=== PATIENT | female | born 1990 | race Caucasian/White ===

== ENCOUNTER 2017-05-07 11:20 | Emergency (ER) | payer MEDICAID ==
[~2017-05-07] VITALS: Ht 162.6 cm; Wt 56.8 kg
[~2017-05-07 11:20] MED LIST: PRENATAL VITAMIN
[2017-05-07 12:25] LABS: UA SPECIFIC GRAVITY <=1.005 (1.005-1.035); microscopic required? YES; urine erythrocyte TRACE (NEGATIVE)
[2017-05-07 13:26] VITALS: BP 99/56
== END 2017-05-07 13:26 | disposition home or self-care (01) ==
LOC: ED 11:20
PROVIDERS: Emergency Medicine
DX: O23.42 Unspecified infection of urinary tract in pregnancy, second trimester (principal); Z3A.23 23 weeks gestation of pregnancy
CPT/HCPCS: J0696

== ENCOUNTER 2017-05-09 20:36 | Emergency (ER) | payer MEDICAID ==
[~2017-05-09] VITALS: Ht 162.6 cm; Wt 57.6 kg
[2017-05-09 21:53] VITALS: BP 105/65
== END 2017-05-09 22:11 | disposition short-term general hospital (02) ==
LOC: ED 20:36
DX: O60.02 Preterm labor without delivery, second trimester (principal); Z3A.24 24 weeks gestation of pregnancy